=== PATIENT | male | born 1990 | race Caucasian/White ===

== ENCOUNTER 2017-10-11 11:39 | Emergency (ER) | payer OTHER ==
[~2017-10-11] VITALS: Ht 177.8 cm; Wt 67.5 kg
[2017-10-11 11:44] VITALS: TEMP 36.8; Ht 177.8 cm; Wt 67.5 kg
[2017-10-11] MEDS ORDERED: CEPH500C PO (12:02)
[2017-10-11 12:12] VITALS: BP 117/68; PULSE 65; O2SAT 100
--- NOTE | 2017-10-14 17:49 | EMERGENCY ROOM VISIT NOTE ---
ED Visit Note First contact with patient: 11:48 CHIEF COMPLAINT: Redness and itching of the right ankle and foot HISTORY OF PRESENT ILLNESS: This 27-year-old white male patient has had gradually increasing redness, swelling, and pain in the foot over the last day. He states he was running yesterday and believes he was stung or bit on the outside of his right ankle. There was initially sharp pain. It has become quite red, swollen, and itchy. Denies fever, chills, or loss of appetite. No prior history of similar episode. He is not diabetic. No treatment yet. He states he is supposed to get next weekend. REVIEW OF SYSTEMS: Head: No headache, injury or neck pain. Throat: No sore throat, dysphagia, or hoarseness. Neck: No pain, stiffness, or swelling. Neurological: No headache, new changes in mental status, vertigo, focal weakness, numbness. Cardiac: No chest pain, diaphoresis, dyspnea on exertion, orthopnea, pedal edema, or palpitations. Respiratory: No cough, change in sputum, wheezes, hemoptysis, shortness of breath, or stridor. Gastrointestinal : No abdominal pain, blood in stools, diarrhea, loss of appetite, nausea, or vomiting. Genitourinary: No dysuria, hematuria, hesitancy, frequency, change in bladder function, or flank pain. General: No fever or chills, fatigue, loss of appetite, or significant recent weight gain or loss. PMH: Significant for reflux Previous surgeries: None. Allergies: NKDA Current medications: None Family history: Significant for heart disease and hypertension. Parents are living SOCIAL HISTORY: Patient lives at home with his fiance. Engaged. Employed. No tobacco use. Occasional EtOH use. PHYSICAL EXAM: Vital Signs: Reviewed Nurse's notes. Afebrile. GENERAL: Alert and oriented, not toxic-appearing or in acute distress. Laying on a bed. Well- developed, well-nourished, muscular. HEAD: Atraumatic, without temporal or scalp tenderness. EYES: PERRL, EOMI, no discharge or injection. NEUROLOGICAL: Alert and cooperative. Sensory and motor functions grossly intact. Skin: The foot is mildly edematous laterally and the skin is red and warm to the touch over the lateral malleolus. It is moderately tender. There are 2 small puncture lezama visible in the skin, consistent with wasp or yellow jacket sting. No stinger is present. There is no lymphangitic streaking. Musculoskeletal: Patient is intact motor function to his toes and ankle. Strength is 5/5 for resisted dorsiflexion, plantarflexion, and eversion. EMERGENCY DEPARTMENT COURSE: Patient was educated regarding today's findings. Conservative care measures were discussed. He was started on Keflex 500 mg 4 times a day 7 days. He was placed in a Martinez dressing by me. He will leave this in place for at least 24 hours. Follow-up with his PCP for reevaluation on Thursday or return to the ED if needed. He was made aware of what to look for in regard to worsening infection. Tylenol and Motrin every 6 hours as needed for discomfort. Benadryl every 6 hours as needed for itching. Ice and elevate frequently to reduce pain and swelling. Weight-bear as tolerated. DIAGNOSIS: Cellulitis of the right ankle and foot Current/Historical Medications Scheduled Cephalexin Monohydrate (Keflex), 500 MG PO QID Vital Signs Date Time Temp Pulse Resp B/P (MAP) Pulse Ox O2 Delivery O2 Flow Rate FiO2 10/11/17 12:12 65 16 117/68 100 10/11/17 11:44 36.8 65 16 117/68 100 Room Air Departure Information Impression Primary Impression: Insect bites Additional Impression: Cellulitis Dispostion Home / Self-Care Condition GOOD Prescriptions Cephalexin Monohydrate (Keflex) 500 Mg Cap 500 MG PO QID, #28 CAP Prov: Les Newton,P.A. 10/11/17 Referrals [facility] (PCP) Forms HOME CARE DOCUMENTATION FORM, MOTRIN USE, TYLENOL USE, IMPORTANT VISIT INFORMATION Patient Instructions Cellulitis - [facility], [facility] Additional Instructions Leave the Martinez dressing in place for 24 hours-keep it dry Follow-up with [facility] tomorrow for reevaluation, or return to the ED Elevate foot frequently to reduce pain and swelling No exercise until rechecked Keflex 1 pill 4 times a day 7 days Tylenol and Motrin every 6 hours as needed for discomfort/swelling Problem Qualifiers
== END 2017-10-11 12:13 | disposition home or self-care (01) ==
LOC: C.EDB 11:40 → C.EDD 12:13
DX: L03.115 Cellulitis of right lower limb (principal); S90.561A Insect bite (nonvenomous), right ankle, initial encounter; W57.XXXA Bitten or stung by nonvenomous insect and other nonvenomous arthropods, initial encounter; Y93.02 Activity, running